=== PATIENT | female | born 1980 ===

== ENCOUNTER 2019-10-15 08:15 | Inpatient (IN) | payer OTHER ==
[~2019-10-15] VITALS: Ht 177.8 cm; Wt 99.8 kg
== END 2019-10-22 14:59 | disposition home or self-care (01) | DRG 742 ==
LOC: ADM 08:15 → SURG 10-20 16:02 → OB/GYN 10-21 08:15 → SURH 10-21 08:15 → EDSTATUS 10-21 08:15 → ADM 10-21 08:15 → OB/GYN 10-21 09:00 → SURG 10-22 14:59
PROVIDERS: Obstetrics & Gynecology Gynecologic Oncology; ADMIT Internal Medicine; ATTEND Internal Medicine
PROC: 0UT04ZZ Resection of Right Ovary, Percutaneous Endoscopic Approach (ICD-10-PCS; 2019-10-21)
PROC: 0DBU4ZZ Excision of Omentum, Percutaneous Endoscopic Approach (ICD-10-PCS; 2019-10-21)
PROC: 07BD3ZX Excision of Aortic Lymphatic, Percutaneous Approach, Diagnostic (ICD-10-PCS; 2019-10-21)
PROC: 0UT54ZZ Resection of Right Fallopian Tube, Percutaneous Endoscopic Approach (ICD-10-PCS; principal; 2019-10-21 09:00)
DX: N80.1 Endometriosis of ovary (principal); K56.7 Ileus, unspecified; N83.11 Corpus luteum cyst of right ovary; N83.8 Other noninflammatory disorders of ovary, fallopian tube and broad ligament; K66.0 Peritoneal adhesions (postprocedural) (postinfection); R59.0 Localized enlarged lymph nodes; D69.6 Thrombocytopenia, unspecified

== ENCOUNTER 2022-02-06 16:55 | Emergency (ER) | payer OTHER ==
[~2022-02-06] VITALS: Ht 177.8 cm; Wt 99.8 kg
[2022-02-06] MEDS ORDERED: RAYOS2 MG (17:06)
== END 2022-02-06 23:07 | disposition home or self-care (01) ==
LOC: ER 16:55
DX: N93.9 Abnormal uterine and vaginal bleeding, unspecified (principal); D69.6 Thrombocytopenia, unspecified; D25.9 Leiomyoma of uterus, unspecified; N83.202 Unspecified ovarian cyst, left side; Z91.018 Allergy to other foods; Z91.013 Allergy to seafood

== ENCOUNTER 2022-03-12 13:30 | Inpatient (IN) | payer OTHER ==
[~2022-03-12] VITALS: Ht 177.8 cm; Wt 99.8 kg
[~2022-03-12 13:30] MED LIST: RAYOS2 MG
[2022-03-13] MEDS ORDERED: OMEPRAZOLE20 MG (09:11)
[2022-03-13] MEDS ORDERED: CLOTRIMAZOLE-BE15 G1 (09:11)
[2022-03-13] MEDS ORDERED: RAYOS5 MG (09:18)
[2022-03-13] MEDS ORDERED: PREDNISONE20 M1 (09:18)
== END 2022-03-16 11:02 | disposition home or self-care (01) | DRG 813 ==
LOC: SEC-K 13:30 → MEDI 13:30
PROVIDERS: ADMIT Internal Medicine Hematology & Oncology; ATTEND Internal Medicine Hematology & Oncology
PROC: 30233R1 Transfusion of Nonautologous Platelets into Peripheral Vein, Percutaneous Approach (ICD-10-PCS; 2022-03-12)
PROC: BW40ZZZ Ultrasonography of Abdomen (ICD-10-PCS; principal; 2022-03-14)
DX: D69.59 Other secondary thrombocytopenia (principal); D68.52 Prothrombin gene mutation; N93.8 Other specified abnormal uterine and vaginal bleeding; Z85.43 Personal history of malignant neoplasm of ovary

== ENCOUNTER 2022-12-27 18:13 | Inpatient (IN) | payer OTHER ==
[~2022-12-27] VITALS: Ht 177.8 cm; Wt 99.8 kg
[~2022-12-27 18:13] MED LIST changes: +CLOTRIMAZOLE-BE15 G1; +OMEPRAZOLE20 MG; +PREDNISONE20 M1; +RAYOS5 MG
--- NOTE | 2022-12-27 18:37 | NUR ---
PACIENTE ALERTA Y ORIENTDAD X 3 REFIERE ABSESO EN MUSLO IZQ DE 2 BIRD DE EVOLUCION.
--- NOTE | 2022-12-27 19:42 | NUR ---
PTE ALERTA Y ORIENTADA X3, SE ADMINISTRAN MEDICAMENTOS BIBI ORDEN MEDICA. SE COLECTAN MUESTRASB DE LAB BAJO MEDIDAS ASEPTICAS. SE ORIENTA PTE Y REFIERE ENTENDER.
[2022-12-30] MEDS ORDERED: CEFPODOXIME PR200 MG PO (18:18)
== END 2022-12-30 18:52 | disposition home or self-care (01) | DRG 603 ==
LOC: ER 18:13 → MEDJ 21:48
PROVIDERS: ADMIT Internal Medicine Hematology & Oncology; ATTEND Internal Medicine Hematology & Oncology
DX: L03.116 Cellulitis of left lower limb (principal); D69.3 Immune thrombocytopenic purpura; D68.52 Prothrombin gene mutation; Z85.43 Personal history of malignant neoplasm of ovary